=== PATIENT | female | born 1960 | race Caucasian/White ===

== ENCOUNTER → 2017-08-16 | Outpatient (CLI) | payer BC ==
--- NOTE | 2017-08-17 09:15 | MM ---
Reason for exam: screening (asymptomatic). Last mammogram was performed 1 year and 1 month ago. History: Patient is postmenopausal. Family history of breast cancer in paternal cousin and breast cancer in paternal aunt. Physical Findings: A clinical breast exam by your physician is recommended on an annual basis and results should be correlated with mammographic findings. MG Screening Mammo w CAD Bilateral CC and MLO view(s) were taken. Prior study comparison: July 26, 2016, bilateral MG screening mammo w CAD. February 26, 2015, bilateral MG screening mammo w CAD. There are scattered fibroglandular densities. There is no discrete abnormality. No significant changes when compared with prior studies. ASSESSMENT: Negative, BI-RAD 1 RECOMMENDATION: Routine screening mammogram of both breasts in 1 year.
== END ==
LOC: RADMAMWWP 08:52
PROVIDERS: ATTEND Obstetrics & Gynecology
DX: Z12.31 Encounter for screening mammogram for malignant neoplasm of breast (principal)

== ENCOUNTER → 2018-09-20 | Outpatient (CLI) | payer BC ==
--- NOTE | 2018-09-21 14:50 | MM ---
Reason for exam: screening (asymptomatic). Last mammogram was performed 1 year and 1 month ago. History: Patient is postmenopausal. Family history of breast cancer in paternal cousin and breast cancer in paternal aunt. Physical Findings: A clinical breast exam by your physician is recommended on an annual basis and results should be correlated with mammographic findings. MG Screening Mammo w CAD Bilateral CC and MLO view(s) were taken. Prior study comparison: August 16, 2017, bilateral MG screening mammo w CAD. July 26, 2016, bilateral MG screening mammo w CAD. There are scattered fibroglandular densities. There is no discrete abnormality. No significant changes when compared with prior studies. ASSESSMENT: Negative, BI-RAD 1 RECOMMENDATION: Routine screening mammogram of both breasts in 1 year.
== END | disposition home or self-care (01) ==
LOC: RADMAMWWP 11:01
PROVIDERS: ATTEND Obstetrics & Gynecology
DX: Z12.31 Encounter for screening mammogram for malignant neoplasm of breast (principal)
CPT/HCPCS: 77067

== ENCOUNTER → 2019-10-25 | Outpatient (CLI) | payer BC ==
--- NOTE | 2019-10-28 09:59 | MM ---
Reason for exam: screening (asymptomatic). Last mammogram was performed 1 year and 1 month ago. History: Patient is postmenopausal. Family history of breast cancer in 2 paternal aunts, breast cancer in aunt, and breast cancer in 2 paternal cousins. Physical Findings: A clinical breast exam by your physician is recommended on an annual basis and results should be correlated with mammographic findings. MG 3D Screening Mammo W/Cad Bilateral CC and MLO view(s) were taken. Prior study comparison: September 20, 2018, bilateral MG screening mammo w CAD. August 16, 2017, bilateral MG screening mammo w CAD. There are scattered fibroglandular densities. There is no discrete abnormality. No significant changes when compared with prior studies. ASSESSMENT: Negative, BI-RAD 1 RECOMMENDATION: Routine screening mammogram of both breasts in 1 year.
== END | disposition home or self-care (01) ==
LOC: RADMAMWWP 08:23
PROVIDERS: ATTEND Obstetrics & Gynecology
DX: Z12.31 Encounter for screening mammogram for malignant neoplasm of breast (principal); Z80.3 Family history of malignant neoplasm of breast
CPT/HCPCS: 77063; 77067

== ENCOUNTER → 2020-08-03 | Outpatient (CLI) | payer BC ==
--- NOTE | 2020-08-03 17:41 | ECHOF ---
Referral Reason:R06.00 Dyspnea MEASUREMENTS -------- HEIGHT: 162.6 cm WEIGHT: 99.8 kg BP: RVIDd: 3.5 cm (< 3.3) IVSd: 1.4 cm (0.6 - 1.1) LVIDd: 3.8 cm (3.9 - 5.3) LVPWd: 1.3 cm (0.6 - 1.1) IVSs: 1.6 cm LVIDs: 2.6 cm LVPWs: 1.7 cm LAESV Index (A-L): 24.46 ml/m Ao Diam: 3.3 cm (2.0 - 3.7) AV Cusp: 1.7 cm (1.5 - 2.6) MV EXCURSION: 14.090 mm (> 18.000) MV EF SLOPE: 110 mm/s (70 - 150) EPSS: 0.2 cm MV E [place]: 0.60 m/s MV DecT: 186 ms MV A [place]: 0.75 m/s MV E/A Ratio: 0.80 RAP: 5.00 mmHg RVSP: 18.78 mmHg FINDINGS -------- This was a technically adequate study. The left ventricular size is normal. There is moderate concentric left ventricular hypertrophy. O verall left ventricular systolic function is low-normal with, an EF between 50 - 55 %. The diastoli c filling pattern is normal for the age of the patient 10.37. The right ventricle is mildly enlarged. Normal LA size by volume 22+/-6 ml/m2. The right atrial size is normal. Interatrial and interventricular septum intact. The aortic valve is trileaflet and appears structurally normal. There is mild aortic valve sclerosi s. Trace amount of aortic regurgitation. There is no evidence of aortic stenosis. No mitral regurgitation. Trace tricuspid regurgitation present. There is no evidence of pulmonary hypertension. The right ventricular systolic pressure, as measured by Doppler, is 18.78mmHg. There is no pulmonic regurgitation present. The aortic root size is normal. IVC Not well visulized. CONCLUSIONS -------- 1. The left ventricular size is normal. 2. There is moderate concentric left ventricular hypertrophy. 3. Overall left ventricular systolic function is low-normal with, an EF between 50 - 55 %. 4. The diastolic filling pattern is normal for the age of the patient 10.37 5. The right ventricle is mildly enlarged. 6. There is mild aortic valve sclerosis. 7. Trace amount of aortic regurgitation. 8. Trace tricuspid regurgitation present. VALIDATION SPECIALIST: Meghana Dalton RDCS
== END | disposition home or self-care (01) ==
LOC: RADECHMAIN 13:46
DX: I06.9 Rheumatic aortic valve disease, unspecified (principal)
CPT/HCPCS: 93306

== ENCOUNTER → 2021-01-06 | Outpatient (CLI) | payer BC ==
--- NOTE | 2021-01-08 11:45 | MM ---
Reason for exam: screening (asymptomatic). Last mammogram was performed 1 year and 2 months ago. History: Patient is postmenopausal. Family history of breast cancer in 2 paternal aunts, breast cancer in aunt, and breast cancer in 2 paternal cousins. Physical Findings: A clinical breast exam by your physician is recommended on an annual basis and results should be correlated with mammographic findings. MG 3D Screening Mammo W/Cad Bilateral CC and MLO view(s) were taken. Prior study comparison: October 25, 2019, bilateral MG 3d screening mammo w/cad. September 20, 2018, bilateral MG screening mammo w CAD. There are scattered fibroglandular densities. There is chronic nodularity in the right breast. No significant changes when compared with prior studies. ASSESSMENT: Negative, BI-RAD 1 RECOMMENDATION: Routine screening mammogram of both breasts in 1 year.
== END ==
LOC: RADMAMWWP 08:51
PROVIDERS: ATTEND Obstetrics & Gynecology
DX: Z12.31 Encounter for screening mammogram for malignant neoplasm of breast (principal); Z78.0 Asymptomatic menopausal state; Z80.3 Family history of malignant neoplasm of breast
CPT/HCPCS: 77063; 77067

== ENCOUNTER → 2022-01-07 | Outpatient (CLI) | payer BC ==
--- NOTE | 2022-01-10 08:26 | MM ---
Reason for exam: screening (asymptomatic). Last mammogram was performed 1 year ago. History: Patient is postmenopausal. Family history of breast cancer in 2 paternal aunts, breast cancer in aunt, and breast cancer in 2 paternal cousins. Physical Findings: A clinical breast exam by your physician is recommended on an annual basis and results should be correlated with mammographic findings. MG Screening Mammo w CAD Bilateral CC and MLO view(s) were taken. Prior study comparison: January 06, 2021, bilateral MG 3d screening mammo w/cad. October 25, 2019, bilateral MG 3d screening mammo w/cad. There are scattered fibroglandular densities. There is no discrete abnormality. No significant changes when compared with prior studies. ASSESSMENT: Negative, BI-RAD 1 RECOMMENDATION: Routine screening mammogram of both breasts in 1 year.
== END | disposition home or self-care (01) ==
LOC: RADMAMWWP 08:50
PROVIDERS: ATTEND Obstetrics & Gynecology
DX: Z12.31 Encounter for screening mammogram for malignant neoplasm of breast (principal); Z78.0 Asymptomatic menopausal state; Z80.3 Family history of malignant neoplasm of breast
CPT/HCPCS: 77067

== ENCOUNTER 2022-04-03 18:50 | Emergency (ER) | payer BC ==
[2022-04-03 19:36] VITALS: BP 182/102; PULSE 98; RESP 18; TEMP 99.2
[2022-04-03] MEDS ORDERED: ACETAMINOPHEN TAB 500 MG TAB PO STA (21:48)
--- NOTE | 2022-04-03 21:50 | ED ---
General Adult HPI - General Chief complaint: Upper Respiratory Infection Stated complaint: Congestion/SOB Time Seen by Provider: 04/03/22 21:21 Source: patient, RN notes reviewed Mode of arrival: ambulatory Limitations: no limitations - History of Present Illness Initial comments: 61-year-old female presents to the emergency Department with complaints of cough and body aches along with close contact Covid exposure. Patient states she was tested on Monday but did not receive her results. States she is diabetic and is requesting a monoclonal antibody infusion. Patient states her symptoms have progressed since onset and she feels short of breath with exertional activity. Denies fever, chills, chest pain, abdominal pain, nausea, vomiting, diarrhea, or dysuria. - Related Data Home Medications Medication Instructions Recorded Confirmed Atorvastatin [Lipitor] 40 mg PO HS 05/07/16 05/07/16 Calcium Carbonate/Vitamin D3 1 each PO DAILY 05/07/16 05/07/16 [Caltrate 600 Plus D3 Tablet] Dapagliflozin/Metformin HCl 1 each PO DAILY 05/07/16 05/07/16 [Xigduo Xr 10 mg-1,000 mg Tab] Docusate Calcium 240 mg PO DAILY 05/07/16 05/07/16 Levothyroxine Sodium [Levoxyl] 125 mcg PO DAILY 05/07/16 05/07/16 Metoprolol Succinate (ER) [Toprol 25 mg PO DAILY 05/07/16 05/07/16 Xl] Thiamine [Vitamin B-1] 100 mg PO DAILY 05/07/16 05/07/16 Previous Rx's Medication Instructions Recorded Meclizine [Antivert] 25 mg PO TID #20 tab 05/07/16 Allergies Allergy/AdvReac Type Severity Reaction Status Date / Time codeine AdvReac Vomiting Verified 05/07/16 07:26 Review of Systems ROS Statement: Those systems with pertinent positive or pertinent negative responses have been documented in the HPI. ROS Other: All systems not noted in ROS Statement are negative. Past Medical History Past Medical History: Diabetes Mellitus, Hyperlipidemia, Hypertension, Thyroid Disorder History of Any Multi-Drug Resistant Organisms: None Reported Past Surgical History: Hysterectomy Past Psychological History: Depression Smoking Status: Never smoker Past Alcohol Use History: None Reported Past Drug Use History: None Reported General Exam Limitations: no limitations General appearance: alert, in no apparent distress Eye exam: Present: normal appearance. Absent: scleral icterus, conjunctival injection ENT exam: Present: normal exam, normal oropharynx, mucous membranes moist Neck exam: Present: normal inspection. Absent: lymphadenopathy Respiratory exam: Present: normal lung sounds bilaterally. Absent: respiratory distress, wheezes, rales, rhonchi, stridor Cardiovascular Exam: Present: regular rate, normal rhythm, normal heart sounds. Absent: systolic murmur, diastolic murmur, rubs, gallop, clicks GI/Abdominal exam: Present: soft, normal bowel sounds. Absent: distended, tenderness, guarding, rebound, rigid Neurological exam: Present: alert, oriented X3, CN II-XII intact Psychiatric exam: Present: flat affect Skin exam: Present: warm, dry, intact, normal color. Absent: rash Course Vital Signs 04/03/22 19:33 Temperature 99.2 F Pulse Rate 98 Respiratory 18 Rate Blood Pressure 182/102 O2 Sat by Pulse 94 L Oximetry - Reevaluation(s) Reevaluation #1: 04/03/22 23:36 Upon reassessment, patient is resting comfortably. Vital signs have improved. Updated on negative chest x-ray and positive Covid. Discussed monoclonal antibody infusion and patient is agreeable. She will be discharged home timeframe for monitoring if there are no adverse side effects. Medical Decision Making - Medical Decision Making This is a 61-year-old female with a past medical history of hypertension, hyperlipidemia, and type 2 diabetes. Patient presents to the emergency department requesting the monoclonal antibody infusion. States her entire household tested positive for Covid, though she has not her symptoms yet. Patient does have a mild headache, body aches, and cough. Physical exam findings are unremarkable. Chest x-ray is negative. Covid test is positive. Patient was given monoclonal antibody infusion after discussing risks and benefits. She is not experiencing fever or hypoxia. She is discharged home and instructed to follow up with her PCP for a recheck as needed. Return parameters were discussed in detail. Patient verbalizes understanding and agrees with this plan. Attending: Gail. - Lab Data Lab Results 04/03/22 Range/Units 21:47 Coronavirus (PCR) Detected A (Not Detectd) - Radiology Data Radiology results: report reviewed, image reviewed Two-view chest x-ray was obtained. Report was reviewed in its entirety. Impression per Dr. Pritchett is no active cardiopulmonary disease. Normal heart. No change. Disposition Clinical Impression: COVID-19 Disposition: HOME SELF-CARE Condition: Stable Instructions (If sedation given, give patient instructions): COVID-19 (Coronavirus Disease 2019) (ED) Additional Instructions: Treat fever and body aches by alternating Tylenol and Motrin as needed. Increase her intake of fluids. Consider electrolyte solution such as Gatorade, Powerade, or Pedialyte. Vitamin C, vitamin D, and zinc have been shown to be helpful. A steroid was not prescribed as it can cause issues with your blood sugar. Your chest Xray was clear therefore an inhaler is not necessary. Continue to isolate in your house for the next 3 days, then wear a mask for the next 5 days when out in public. Follow-up with your PCP for a recheck via telephone or video visit if needed. Return to the emergency department with any new, worsening, or concerning symptoms. Is patient prescribed a controlled substance at d/c from ED?: No Referrals: Santo Messina MD [Primary Care Provider] - 1-2 days
--- NOTE | 2022-04-03 22:39 | XR ---
EXAMINATION TYPE: XR chest 2V DATE OF EXAM: 04/03/2022 COMPARISON: 05/07/2016 HISTORY: Cough TECHNIQUE: 2 views FINDINGS: Heart and mediastinum are normal. Lungs are clear. Diaphragm is normal. There are no hilar masses. There is mild spurring in the thoracic spine. IMPRESSION: No active cardiopulmonary disease. Normal heart. No change.
[2022-04-04] MEDS ORDERED: BEBTELOVIMAB (EUA) 175 MG/2 ML VIAL IV ONE
== END 2022-04-04 02:02 | disposition home or self-care (01) ==
LOC: EC 18:50
DX: U07.1 COVID-19 (principal); E11.9 Type 2 diabetes mellitus without complications; I10 Essential (primary) hypertension; E07.9 Disorder of thyroid, unspecified; E78.5 Hyperlipidemia, unspecified; Z88.5 Allergy status to narcotic agent; Z79.899 Other long term (current) drug therapy; Z79.890 Hormone replacement therapy; Z79.84 Long term (current) use of oral hypoglycemic drugs
CPT/HCPCS: 71046; 87635; 99284

== ENCOUNTER → 2023-11-15 | Outpatient (CLI) | payer MEDICARE ==
--- NOTE | 2023-11-15 15:07 | P.SLEEP ---
History of Present Illness DATE: 11/15/2023 CONSULTATION/NEW PATIENT EVALUATION HISTORY OF PRESENT ILLNESS/SLEEP-WAKE EVALUATION: 63-year-old lady had been evaluated in the sleep center for obstructive sleep apnea hypopnea syndrome. Patient has history of obstructive sleep apnea for 20 years. She is using her CPAP equipment every night, and presently she has second CPAP unit. I checked CPAP unit. Range of the pressure from 8-18, average 11.8 cm of water. Usage is 100% of nights, average 9.8 hours per night. Leak is 8 L/m which is in normal range. Apnea hypopnea index is 0.2, which is perfect. SLEEP SCHEDULE: Usually sleep schedule from 9 PM to 8 AM 7 days a week. FALLING ASLEEP: No problems with falling asleep. DURING SLEEP: No snoring on CPAP. Patient may wake up from sleep up to 2 times with nocturia. No history of hypnogogical hallucinations, sleep paralysis, or cataplexy. DURING THE DAY/WAKE STATE: Patient wakes up in the morning refreshed. [place] sleepiness scale is 7, which is normal. Patient may take 1 nap at 1 PM or 6 PM. PAST MEDICAL HISTORY: Hypertension, hyperlipidemia, diabetes mellitus, hypothyroidism. PAST SURGICAL HISTORY: Total hysterectomy. MEDICATIONS: Rubelsus 40 mg once a day, losartanhydrochlorothiazide 62390 milligrams once a day, atorvastatin 40 mg once a day, levothyroxine 125 g once a day, metformin 500 mg once a day. SOCIAL HISTORY: Negative for smoking or using alcohol. FAMILY HISTORY: Pneumonia, cancer. REVIEW OF SYSTEMS: Occasional sleepiness during the day. No fevers. No double vision. No recent chest pain. No shortness of breath. No abdominal pain. No bleeding episodes. No blood in urine. No seizure episodes. PHYSICAL EXAMINATION: GENERAL: A pleasant patient without any distress. VITAL SIGNS: BP 137/84 , HR 92 , RR 12 , weight 168.6 pounds, height 5 foot 2 inches, body mass index 30.7 . HEENT: PERRLA, EOMI. Evaluation of oropharynx showed tongue protrudes midline, low position of soft palate Mallampati 4. NECK: Supple. No JVD. Thyroid is not palpable. 14 inches in circumference. LUNGS: Clear to percussion and to auscultation. Good air exchange. No wheezing or rhonchi. HEART: S1, S2 regular. No murmurs, gallops or rubs. ABDOMEN: Soft and nontender. Bowel sounds are present. No organomegaly appreciated. EXTREMITIES: No clubbing or cyanosis. PROGRAM DIRECTOR SUBSTANCE ABUSE: Awake, alert, and oriented x3. Cranial nerves 2 to 7 intact. There is no fasciculation or atrophy noted. No focal deficits observed. ASSESSMENT: 1. Obstructive sleep apnea hypopnea syndrome for 20 years, low position of soft palate Mallampati 4. Patient continued to use his CPAP equipment every night for the whole night, normal respiration on CPAP. 2. Hypertension. 3. Hyperlipidemia. 4. Hypothyroidism. 5 diabetes mellitus. 6 . Status post total hysterectomy. PLAN: 1. Prescription for all necessary CPAP supplies. 2. We will get results of previous sleep studies. 3. Preferable position during sleep on the side. 4. No driving if patient feels any sleepiness. Patient is aware of civil and criminal liability for unsafe driving. 5. Sleep hygiene with regular sleep time for at least 7.5-8 hours. 6. Watching weight. 7. Follow-up visit in 6 months. Thank you very much for referring this patient for consultation. Sincerely, Mendoza Shah MD, PhD, FAASM. Diplomat of [place] [employer], Sleep Medicine Board by [place] [employer] [place] [employer] 4Th Grade Teacher of [employer] [facility] [place] Past Medical History Past Medical History: Diabetes Mellitus, Hyperlipidemia, Hypertension, Thyroid Disorder History of Any Multi-Drug Resistant Organisms: None Reported Past Surgical History: Hysterectomy Past Psychological History: Depression Smoking Status: Never smoker Past Alcohol Use History: None Reported Past Drug Use History: None Reported Medications and Allergies Home Medications Medication Instructions Recorded Confirmed Type Atorvastatin [Lipitor] 40 mg PO HS 05/07/16 05/07/16 History Calcium Carbonate/Vitamin D3 1 each PO DAILY 05/07/16 05/07/16 History [Caltrate 600 Plus D3 Tablet] Dapagliflozin/Metformin HCl 1 each PO DAILY 05/07/16 05/07/16 History [Xigduo Xr 10 mg-1,000 mg Tab] Docusate Calcium 240 mg PO DAILY 05/07/16 05/07/16 History Levothyroxine Sodium [Levoxyl] 125 mcg PO DAILY 05/07/16 05/07/16 History Meclizine [Antivert] 25 mg PO TID #20 tab 05/07/16 Rx Metoprolol Succinate (ER) [Toprol 25 mg PO DAILY 05/07/16 05/07/16 History Xl] Thiamine [Vitamin B-1] 100 mg PO DAILY 05/07/16 05/07/16 History Allergies Allergy/AdvReac Type Severity Reaction Status Date / Time codeine AdvReac Vomiting Verified 05/07/16 07:26 Sleep Note - Sleep Note Sleep Note: Temperature: Pulse Rate: Respiratory Rate: Blood Pressure: SpO2: Height: Weight: BMI: Neck Circumference:
== END ==
LOC: 3 N SLEEP 14:03
PROVIDERS: ATTEND Internal Medicine
DX: G47.33 Obstructive sleep apnea (adult) (pediatric) (principal); I10 Essential (primary) hypertension; E78.5 Hyperlipidemia, unspecified; E03.9 Hypothyroidism, unspecified; E11.9 Type 2 diabetes mellitus without complications; Z90.710 Acquired absence of both cervix and uterus; Z99.89 Dependence on other enabling machines and devices; Z79.84 Long term (current) use of oral hypoglycemic drugs; Z79.899 Other long term (current) drug therapy; Z79.890 Hormone replacement therapy; Z88.5 Allergy status to narcotic agent
CPT/HCPCS: 99211

== ENCOUNTER → 2024-01-11 | Outpatient (CLI) | payer MEDICARE ==
--- NOTE | 2024-01-11 12:41 | BD ---
EXAMINATION TYPE: Axial Bone Density DATE OF EXAM: 01/11/2024 CLINICAL HISTORY: 63 years old Female. ICD-10 CODE: N95.1 MENOPAUSAL AND FEMALE CLIMA Height: 61 Weight: 156 FRAX RISK QUESTIONS: Alcohol (3 or more units per day): no Family History (Parent hip fracture): no Glucocorticoids (More than 3mos): no History of Fracture in Adulthood: no Secondary Osteoporosis: 1. Type 1 Diabetes: no 2. Hyperthyroidism: no 3. Menopause before 45: yes 4. Malnutrition: no 5. Chronic liver disease: no Rheumatoid Arthritis: no Current Tobacco Use: no RISK FACTORS HISTORY OF: Hip Fracture (Right/Left): no Spine Fracture: no History of Wrist Fracture: no Surgery to Spine/Hip(right/left)/Wrist (right/left): no MEDICATIONS: Thyroid Medications: Levothyroxine How Long: past 20 years Osteoporosis Medications: no EXAM MEASUREMENTS: Bone mineral densitometry was performed using the [employer] System. Bone mineral density as measured about the Lumbar spine is: ----- L1-L4(G/cm2): 1.305 T Score Values are as follows: ----- L1: -0.2 ----- L2: -0.3 ----- L3: 2.1 ----- L4: 1.9 ----- L1-L4: 1.0 Z Score Values are as follows: ----- L1: 1.2 ----- L2: 1.1 ----- L3: 3.5 ----- L4: 3.3 ----- L1-L4: 2.4 Bone mineral density has: increased 11.3 % since study of: 08/06/2008 Bone mineral density about the R hip (g/cm2): 0.923 Bone mineral density about the L hip (g/cm2): 0.967 T Score values are as follows: -----R Neck: -1.6 -----L Neck: -1.7 -----R Total: -0.7 -----L Total: -0.3 Z Score values are as follows: -----R Neck: -0.2 -----L Neck: -0.3 -----R Total: 0.4 -----L Total: 0.8 Bone mineral density has: decreased -7.2 % since study of: 08/06/08 FRAX%s: The graph provided illustrates a 9.4% chance for a major osteoporotic fx and a 1.1% chance fo r the hips probability for fx in 10 years time. IMPRESSION: Normal (Values between +1 and -1 indicate normal bone mass). Consider repeating this study in 5 year s or sooner if there is some new clinical indication. NOTE: T-SCORE=SD OF THE YOUNG ADULT MEAN.
--- NOTE | 2024-01-11 19:26 | MM ---
Reason for Exam: Screening (asymptomatic). Last screening mammogram was performed 12 month(s) ago. Patient History: Menarche at age 10. First Full-Term at age 16. Left ovary removed at age 40. Right ovary removed at age 40. Hysterectomy at age 40. Postmenopausal. Paternal cousin had breast cancer. Paternal cousin had breast cancer. Paternal aunt had breast cancer. Paternal aunt had breast cancer. Maternal aunt had breast cancer. Risk Values: Amber 5 year model risk: 1.2%. NCI Lifetime model risk: 4.6%. Prior Study Comparison: 01/06/2021 Bilateral Screening Mammogram, [facility]. 01/07/2022 Bilateral Screening Mammogram, [facility]. 01/09/2023 Bilateral MG 3D screening mammo w/cad, [facility]. Tissue Density: There are scattered areas of fibroglandular density. Findings: Analyzed By CAD. There is no suspicious group of microcalcifications or new suspicious mass in either breast. Overall Assessment: Negative, BI-RAD 1 Management: Screening Mammogram of both breasts in 1 year. . Patient should continue monthly self-breast exams. A clinical breast exam by your physician is recommended on an annual basis. This exam should not preclude additional follow-up of suspicious palpable abnormalities. Note on Amber scores and lifetime risk: 1. A Amber score greater than 3% is considered moderate risk. If this is the case, consider specialist referral to assess eligibility for a risk reducing agent. 2. If overall lifetime risk for the development of breast cancer is 20% or higher, the patient may qualify for future screening with alternating mammogram and breast MRI. Electronically signed and approved by: Russ Landin M.D. Radiologist
== END | disposition home or self-care (01) ==
LOC: RADBDWWP 06:48
PROVIDERS: ATTEND Obstetrics & Gynecology
DX: Z12.31 Encounter for screening mammogram for malignant neoplasm of breast (principal); N95.1 Menopausal and female climacteric states; M85.89 Other specified disorders of bone density and structure, multiple sites
CPT/HCPCS: 77063; 77067; 77080

== ENCOUNTER 2024-03-08 05:50 | Day surgery (SDC) | payer MEDICARE ==
[~2024-03-08 05:50] MED LIST: LIDOCAINE 1% (10MG/ML) FOR IV START INTRADERMA PRN
[2024-03-08 06:50] LABS: Glucose,Whole Blood 95 mg/dL (70-110)
[2024-03-08] MEDS: LACTATED RINGERS 1,000 ML IV SCH (06:51)
[2024-03-08] MEDS ORDERED: LIDOCAINE 2% (PF) 20 MG/ML 5 ML VIAL ONE (06:58)
[2024-03-08] MEDS ORDERED: PROPOFOL 10 MG/ML 20 ML VIAL IV ONE (06:58)
[2024-03-08 07:26] VITALS: TEMP 98.1
--- NOTE | 2024-03-08 07:39 | P.PCN ---
Date of Procedure: 03/08/24 Procedure(s) Performed: brief history: Patient is a pleasant 63-year-old white female scheduled for an elective upper endoscopy as well as colonoscopy as a part of evaluation of GERD and prior history of colon Procedure performed: Esophagogastroduodenoscopy with biopsy Colonoscopy polypectomy Preoperative diagnosis: GERD History of colon polyps Anesthesia: MAC Procedure: After informed consent was obtained from the patient was brought into the endoscopy unit and IV sedation was administered by anesthesia under continuous monitoring. Initially upper endoscopy was done. The Olympus GF 160 video endoscope was inserted inserted into the mouth and esophagus intubated without any difficulty and was gradually advanced into the stomach and duodenum and carefully examined. The bulb and second part of the duodenum appeared normal. The scope was then withdrawn into the stomach adequately insufflated with air and upon careful examination the antrum mild diffuse gastritis and biopsies were done from this area. Mucosa of the body, cardia and fundus appeared normal. The scope was then withdrawn into the esophagus. Small hiatal hernia noted. The GE junction was located at 40 cm to the incisors. It appeared regular with no erythema erosions or ulcerations. Rest of the esophagus appeared normal. Patient tolerated the procedure well. At this time the patient continued to remain sedation. Initial digital rectal examination was normal. Olympus CF 160 video colonoscope was then inserted into the rectum and gradually advanced to the cecum with moderate to severe difficulty. Careful examination was performed as the scope was gradually being withdrawn. The prep was excellent. The cecum, motor invasion: There was a 5 mm polyp that was removed by cold snare polypectomy. Rest of the ascending colon, transverse colon, descending colon, sigmoid colon and rectum appeared normal. Diverticulosis. Retroflexion was performed in the rectum and no lesions were noted. Patient tolerated the procedure well. Impression: 1. Upper endoscopy revealed mild gastritis and small hiatal hernia 2. Colonoscopy revealed 5 mm ascending colon polyp status post cold snare polypectomy and scattered sigmoid diverticulosis Recommendations: Findings of this examination were discussed with the patient as well as family. She was advised to follow-up with the biopsy results. If the biopsy was adenoma she can have repeat colonoscopy in 5 years.
[2024-03-08 08:11] VITALS: BP 119/75; PULSE 72; RESP 16
== END 2024-03-08 08:30 | disposition home or self-care (01) ==
LOC: ORWHC2ENDO 05:50
PROVIDERS: ATTEND Internal Medicine Gastroenterology
DX: Z12.11 Encounter for screening for malignant neoplasm of colon (principal); K29.50 Unspecified chronic gastritis without bleeding; K21.9 Gastro-esophageal reflux disease without esophagitis; K44.9 Diaphragmatic hernia without obstruction or gangrene; K63.5 Polyp of colon; K57.30 Diverticulosis of large intestine without perforation or abscess without bleeding; I10 Essential (primary) hypertension; E78.5 Hyperlipidemia, unspecified; G47.33 Obstructive sleep apnea (adult) (pediatric); E03.9 Hypothyroidism, unspecified; F32.A Depression, unspecified; Z79.890 Hormone replacement therapy; Z79.899 Other long term (current) drug therapy; Z86.010 Personal history of colon polyps; Z88.5 Allergy status to narcotic agent
CPT/HCPCS: 88305; 45385; 43239; J2704; J2001

== ENCOUNTER → 2024-04-12 | Outpatient (CLI) | payer MEDICARE ==
--- NOTE | 2024-04-22 14:10 | CT ---
EXAMINATION TYPE: CT abdomen wo con CT DLP: 261.70 mGycm, Automated exposure control for dose reduction was used. DATE OF EXAM: 04/12/2024 2:17 PM COMPARISON: CT abdomen pelvis most recent from CLINICAL INDICATION:Female, 63 years old with history of R74.8 ABNORMAL LEVELS OF OTHER SERUM ENZYMES ; HIGH LIPASE LEVEL IN SERUM. NO ORAL NO IV. TECHNIQUE: Axial CT abdomen wo con;Sagittal and coronal reformats were created on a separate worksta tion. Contrast used: mL of , (none if empty) Oral contrast used: without Oral Contrast (none if empty) FINDINGS: LOWER CHEST: Lungs are clear. No pleural effusions. Small to moderate-sized hiatal hernia. ABDOMEN LIVER: Unremarkable GALLBLADDER AND BILE DUCTS: Unremarkable. PANCREAS: Unremarkable. SPLEEN: Unremarkable. ADRENAL GLANDS: A 17 mm right adrenal adenoma seen [place]. Units equal 10. The absence of known diagnosis of cancer or symptoms, this can be considered benign and require no follow-up. A 26 mm lef t adrenal nodule is seen which has density of 10 HU. KIDNEYS AND URETERS: No evidence of hydronephrosis or renal calculus. The ureters are unremarkable. ABDOMEN continued: STOMACH AND BOWEL: Stomach and duodenum are unremarkable. No evidence of bowel obstruction. A normal appendix is identified. PERITONEUM/RETROPERITONEUM: No evidence of pneumoperitoneum or free fluid. VASCULATURE: No evidence of aortic aneurysm. MUSCULOSKELETAL: No acute osseous abnormalities LYMPH NODES: No gross evidence for lymphadenopathy. SOFT TISSUE/ABDOMINAL WALL: Unremarkable IMPRESSION: 1. No acute process appreciated. 2. Small to moderate-sized hiatal hernia. 3. Two adrenal adenomas require no follow-up is otherwise patient does not have known cancer diagnos is. 4. Normal pancreas.
== END | disposition home or self-care (01) ==
LOC: RADCTMAIN 13:58
PROVIDERS: ATTEND Family Medicine
DX: K44.9 Diaphragmatic hernia without obstruction or gangrene (principal); R74.8 Abnormal levels of other serum enzymes
CPT/HCPCS: 74150

== ENCOUNTER → 2024-05-03 | Outpatient (CLI) | payer MEDICARE ==
[2024-05-03 09:16] LABS: Ionized Calcium 5.7 mg/dL (4.5-5.3)
[2024-05-03 17:42] LABS: Calcium 10.7 mg/dL (8.7-10.3)
== END | disposition home or self-care (01) ==
LOC: LABWHC1 08:44
PROVIDERS: ATTEND Nurse Practitioner Adult Health
DX: E83.52 Hypercalcemia (principal); D35.00 Benign neoplasm of unspecified adrenal gland
CPT/HCPCS: 36415; 82310; 82330; 82533; 82627; 83835; 83970

== ENCOUNTER → 2024-05-15 | Outpatient (CLI) | payer MEDICARE ==
[2024-05-15 10:54] VITALS: BP 131/85; PULSE 91; RESP 16; TEMP 98.1
--- NOTE | 2024-05-15 11:29 | P.PROGSL ---
Subjective DATE: 05/15/2024 FOLLOW UP VISIT. Patient with obstructive sleep apnea hypopnea syndrome return to sleep center for follow-up visit. Information from previous visit have been reviewed. Patient is using PAP equipment every night for the whole night, getting PAP supplies in time. The patient does not have significant problems with the mask, PAP unit and humidification. [place] sleepiness scale is 6, which is normal. I checked information from PAP unit. PAP unit pressure 8-18, average 11 cm H2O. Usage is 100% for more then 4 hours, average 9.5 hours per night. Leak is 10 l/m, which is in acceptable range. Apnea Hypopnea Index is 0.2, which is normal. MEDICATIONS: Please see below During physical exam: GENERAL: A pleasant patient without any distress. VITAL SIGNS: Please see below, weight 149.4 pounds, BMI 27.6. HEENT: PERRLA, EOMI.low position of soft palate, Mallapati 4 . NECK: Supple. No JVD. LUNGS: Clear to percussion and to auscultation. Good air exchange. No wheezing or rhonchi. HEART: S1, S2 regular. ABDOMEN: Soft and nontender.[] EXTREMITIES: No clubbing or cyanosis. BLIND EYELETTER: Awake, alert, and oriented x3. No focal deficit. Impressions: 1. Obstructive sleep apnea-hypopnea syndrome. Patient demonstrated great compliance with treatment, benefiting from treatment. 2. Patient lost weight related minimal overweight with more numerous index 27.6. 3. Hypertension. 4. Hyperlipidemia. 5. Hypothyroidism. 6. Status post total hysterectomy. Plan: 1. Continue using PAP equipment every night for the whole night. Motor life expectancy on CPAP unit was exceeded, but machine at the present time works well. If any problems CPAP unit will be replaced. 2. To change air filter at least 1-2 times per month. 3. PAP unit should stay lower then position of the head. 4. Advised patient to remove all remaining water from humidifier canister daily and make it dry after each usage. Refill canister with fresh distilled water before each usage. 5. Sleep hygiene with regular time in bed for at least 8 hours. 6. Precautions related to driving. No driving if feel any sleepiness. 7. I will maintain prescription for PAP supplies including mask, tube, filters. 8. Follow up visit in 6 months or earlier if patient has any problems. 9. Watching weight. Thank you very much for allowing me to participate in the management of your patient. Mendoza Shah MD, PhD, FAASM. Diplomat of [place] [employer], Sleep Medicine Board by [place] [employer] Patent Counsel of [facility] [place] Objective - Vital Signs Vital Signs: Vital Signs Temp 98.1 F 05/15/24 10:53 Pulse 91 05/15/24 10:53 Resp 16 05/15/24 10:53 BP 131/85 05/15/24 10:53 Pulse Ox 98 05/15/24 10:53 FiO2 Intake & Output 05/14/24 05/15/24 05/15/24 18:59 06:59 18:59 Weight 67.585 kg Home Medications: Home Medications Medication Instructions Recorded Confirmed Type Atorvastatin [Lipitor] 40 mg PO HS 05/07/16 03/08/24 History Levothyroxine Sodium [Levoxyl] 125 mcg PO DAILY 05/07/16 05/15/24 History Aspirin 81 mg PO DAILY 03/06/24 05/15/24 History Linaclotide [Linzess] 145 mcg PO Q48H 03/06/24 03/08/24 History Losartan/Hydrochlorothiazide 1 each PO DAILY 03/06/24 05/15/24 History [Losartan-Hctz 100-25 mg Tab] Semaglutide [Rybelsus] 14 mg PO DAILY 03/06/24 05/15/24 History Unk Fish Oil 1 tab PO DAILY 03/06/24 03/08/24 History metFORMIN HCL 500 mg PO DAILY 03/06/24 03/08/24 History Linaclotide [Linzess] 145 mcg PO 05/15/24 History
== END ==
LOC: 3 N SLEEP 10:36
PROVIDERS: ATTEND Internal Medicine
DX: G47.33 Obstructive sleep apnea (adult) (pediatric) (principal); I10 Essential (primary) hypertension; E78.5 Hyperlipidemia, unspecified; E66.3 Overweight; E03.9 Hypothyroidism, unspecified; Z90.710 Acquired absence of both cervix and uterus; Z99.89 Dependence on other enabling machines and devices; Z68.27 Body mass index [BMI] 27.0-27.9, adult; Z79.899 Other long term (current) drug therapy; Z79.890 Hormone replacement therapy; Z88.5 Allergy status to narcotic agent
CPT/HCPCS: 99212

== ENCOUNTER → 2025-01-08 | Outpatient (CLI) | payer MEDICARE ==
[2025-01-08 10:35] VITALS: BP 124/80; PULSE 86; RESP 16; TEMP 98
--- NOTE | 2025-01-08 11:01 | P.PROGSL ---
Subjective DATE: 01/08/2025 FOLLOW UP VISIT. Patient with obstructive sleep apnea hypopnea syndrome return to sleep center for follow-up visit. Information from previous visit have been reviewed. Patient is using PAP equipment every night for the whole night, getting PAP supplies in time. CPAP unit does not stop and noisy. [place] sleepiness scale is 9, which is borderline. I checked information from PAP unit. Motor life expectancy was exceeded PAP unit pressure 8-18, average 11.8 cm H2O. Usage is 100% for more then 4 hours, average 9.3 hours per night. Leak is 2 l/m, which is in normal range. Apnea Hypopnea Index is 0.2, which is perfect. MEDICATIONS have been reviewed, please see below. During physical exam: GENERAL: A pleasant patient without any distress. VITAL SIGNS: Please see below, weight is 158 lbs. HEENT: PERRLA, EOMI.low position of soft palate, Mallapati 4 . NECK: Supple. No JVD. LUNGS: Clear to percussion and to auscultation. Good air exchange. No wheezing or rhonchi. HEART: S1, S2 regular. ABDOMEN: Soft and nontender.[] EXTREMITIES: No clubbing or cyanosis. GEODETIC SURVEYOR: Awake, alert, and oriented x3. No focal deficit. Impressions: 1. Obstructive sleep apnea-hypopnea syndrome. Patient demonstrated great compliance with treatment, benefiting from treatment. CPAP unit is old, motor life expectancy was exceeded, noisy, does not stop. 2. Hypertension. 3. Hyperlipidemia. 4. Hypothyroidism. 5. Status post total hysterectomy. Plan: 1. Continue using PAP equipment every night for the whole night. Prescription to replace CPAP unit. 2. Sleep hygiene with regular time in bed for at least 7.5-8 hours 3. PAP unit should stay lower then position of the head. 4. Advised patient to remove all remaining water from humidifier canister daily and make it dry after each usage. Refill canister with fresh distilled water before each usage. 5. Watching weight. 6. Precautions related to driving. No driving if feel any sleepiness. 7. I will maintain prescription for PAP supplies including mask, tube, filters. 8. Follow up visit in 1-3 months or earlier if patient has any problems to check clinical response on treatment with new CPAP unit, compliance with treatment and [place] adjustments related to mask fitting pressure and humidification. Thank you very much for allowing me to participate in the management of your patient. Mendoza Shah MD, PhD, FAASM. Diplomat of [place] [employer] Sleep Medicine, Sleep Medicine Board by [place] [employer] of Internal Medicine Copy Reader of [facility] [place] Objective - Vital Signs Vital Signs: Vital Signs Temp 98 F 01/08/25 10:33 Pulse 86 01/08/25 10:33 Resp 16 01/08/25 10:33 BP 124/80 01/08/25 10:33 Pulse Ox 97 01/08/25 10:33 FiO2 Intake & Output 01/07/25 01/08/25 01/08/25 18:59 06:59 18:59 Weight 71.668 kg Home Medications: Home Medications Medication Instructions Recorded Confirmed Type Atorvastatin [Lipitor] 40 mg PO HS 05/07/16 03/08/24 History Levothyroxine Sodium [Levoxyl] 125 mcg PO DAILY 05/07/16 01/08/25 History Aspirin 81 mg PO DAILY 03/06/24 01/08/25 History Linaclotide [Linzess] 145 mcg PO Q48H 03/06/24 01/08/25 History Losartan/Hydrochlorothiazide 1 each PO DAILY 03/06/24 01/08/25 History [Losartan-Hctz 100-25 mg Tab] Semaglutide [Rybelsus] 14 mg PO DAILY 03/06/24 05/15/24 History Unk Fish Oil 1 tab PO DAILY 03/06/24 03/08/24 History metFORMIN HCL 500 mg PO DAILY 03/06/24 03/08/24 History Linaclotide [Linzess] 145 mcg PO 05/15/24 History Tirzepatide [Mounjaro] 5 mg SQ WEEKLY 01/08/25 01/08/25 History
== END ==
LOC: 3 N SLEEP 10:16
PROVIDERS: ATTEND Internal Medicine
DX: G47.33 Obstructive sleep apnea (adult) (pediatric) (principal); I10 Essential (primary) hypertension; E78.5 Hyperlipidemia, unspecified; E03.9 Hypothyroidism, unspecified; Z99.89 Dependence on other enabling machines and devices; Z90.710 Acquired absence of both cervix and uterus; Z88.5 Allergy status to narcotic agent
CPT/HCPCS: 99212

== ENCOUNTER → 2025-02-19 | Outpatient (CLI) | payer MEDICARE ==
--- NOTE | 2025-02-19 08:57 | MM ---
Reason for Exam: Screening (asymptomatic). Last mammogram was performed 1 year(s) and 1 month(s) ago. Patient History: Menarche at age 10. First Full-Term at age 16. Left ovary removed at age 40. Right ovary removed at age 40. Hysterectomy at age 40. Postmenopausal. Paternal cousin had breast cancer. Paternal cousin had breast cancer. Paternal aunt had breast cancer. Paternal aunt had breast cancer. Maternal aunt had breast cancer. Risk Values: Amber 5 year model risk: 1.2%. NCI Lifetime model risk: 4.4%. Prior Study Comparison: 01/07/2022 Bilateral Screening Mammogram, [facility]. 01/09/2023 Bilateral MG 3D screening mammo w/cad, [facility]. 01/11/2024 Bilateral MG 3D screening mammo w/cad, [facility]. Tissue Density: There are scattered areas of fibroglandular density. Findings: Analyzed By CAD. There is no suspicious group of microcalcifications or new suspicious mass in either breast. Overall Assessment: Benign, BI-RAD 2 Management: Screening Mammogram of both breasts in 1 year. . Patient should continue monthly self-breast exams. A clinical breast exam by your physician is recommended on an annual basis. This exam should not preclude additional follow-up of suspicious palpable abnormalities. Note on Amber scores and lifetime risk: 1. A Amber score greater than 3% is considered moderate risk. If this is the case, consider specialist referral to assess eligibility for a risk reducing agent. 2. If overall lifetime risk for the development of breast cancer is 20% or higher, the patient may qualify for future screening with alternating mammogram and breast MRI. [facility], , 02/19/2025 8:54 AM. Electronically signed and approved by: Freddy Mcclure M.D. Radiologis
== END | disposition home or self-care (01) ==
LOC: RADMAMWWP 08:30
PROVIDERS: ATTEND Family Medicine
DX: Z12.31 Encounter for screening mammogram for malignant neoplasm of breast (principal); R92.323 Mammographic fibroglandular density, bilateral breasts; Z78.0 Asymptomatic menopausal state; Z80.3 Family history of malignant neoplasm of breast
CPT/HCPCS: 77063; 77067

== ENCOUNTER → 2025-03-20 | Outpatient (CLI) | payer MEDICARE ==
[2025-03-20 13:14] VITALS: BP 134/81; PULSE 72; RESP 16; TEMP 98.1
--- NOTE | 2025-03-20 13:55 | P.PROGSL ---
Subjective DATE: 03/20/2025 FOLLOW UP VISIT. Patient with obstructive sleep apnea hypopnea syndrome return to sleep center for follow-up visit. This is first visit after patient received new CPAP unit. Information from previous visit have been reviewed. Patient is using PAP equipment every night for the whole night, getting PAP supplies in time. The patient does not have significant problems with the mask, PAP unit and humidification. [place] sleepiness scale is 4. I checked information from PAP unit. PAP unit pressure 8-14, average 10.9 cm H2O. Usage is 100% for more then 4 hours, average 9 hours per night. Leak is slightly increased to 34.6 l/m. Apnea Hypopnea Index is 0.2, which is normal. MEDICATIONS have been reviewed, please see below. During physical exam: GENERAL: A pleasant patient without any distress. VITAL SIGNS: Please see below, weight is 156.2 lbs. HEENT: PERRLA, EOMI.low position of soft palate, Mallapati 4 . NECK: Supple. No JVD. LUNGS: Clear to percussion and to auscultation. Good air exchange. No wheezing or rhonchi. HEART: S1, S2 regular. ABDOMEN: Soft and nontender.[] EXTREMITIES: No clubbing or cyanosis. HOTEL CONTROLLER: Awake, alert, and oriented x3. No focal deficit. Impressions: 1. Obstructive sleep apnea-hypopnea syndrome. Patient demonstrated great compliance with treatment, benefiting from treatment. 2. Hypertension. 3. Hyperlipidemia. 4. Hypothyroidism. 5. Status post total hysterectomy. Plan: 1. Continue using PAP equipment every night for the whole night. 2. Sleep hygiene with regular time in bed for at least 7.5-8 hours 3. PAP unit should stay lower then position of the head. 4. Advised patient to remove all remaining water from humidifier canister daily and make it dry after each usage. Refill canister with fresh distilled water before each usage. 5. Watching weight. 6. Precautions related to driving. No driving if feel any sleepiness. 7. I will maintain prescription for PAP supplies including mask, tube, filters. 8. Follow up visit in 8 months or earlier if patient has any problems. Thank you very much for allowing me to participate in the management of your patient. Mendoza Shah MD, PhD, FAASM. Diplomat of [place] [employer], Sleep Medicine Board by [place] [employer] Room Service Waiter/Waitress of [facility] [place] Objective - Vital Signs Vital Signs: Vital Signs Temp 98.1 F 03/20/25 13:14 Pulse 72 03/20/25 13:14 Resp 16 03/20/25 13:14 BP 134/81 03/20/25 13:14 Pulse Ox 97 03/20/25 13:14 FiO2 Home Medications: Home Medications Medication Instructions Recorded Confirmed Type Atorvastatin [Lipitor] 40 mg PO HS 05/07/16 03/08/24 History Levothyroxine Sodium [Levoxyl] 125 mcg PO DAILY 05/07/16 01/08/25 History Aspirin 81 mg PO DAILY 03/06/24 01/08/25 History Linaclotide [Linzess] 145 mcg PO Q48H 03/06/24 01/08/25 History Losartan/Hydrochlorothiazide 1 each PO DAILY 03/06/24 01/08/25 History [Losartan-Hctz 100-25 mg Tab] Semaglutide [Rybelsus] 14 mg PO DAILY 03/06/24 05/15/24 History Unk Fish Oil 1 tab PO DAILY 03/06/24 03/08/24 History metFORMIN HCL 500 mg PO DAILY 03/06/24 03/08/24 History Linaclotide [Linzess] 145 mcg PO 05/15/24 History Tirzepatide [Mounjaro] 5 mg SQ WEEKLY 01/08/25 01/08/25 History
== END ==
LOC: 3 N SLEEP 13:01
PROVIDERS: ATTEND Internal Medicine
DX: G47.33 Obstructive sleep apnea (adult) (pediatric) (principal); I10 Essential (primary) hypertension; E78.5 Hyperlipidemia, unspecified; E03.9 Hypothyroidism, unspecified; Z90.710 Acquired absence of both cervix and uterus; Z88.5 Allergy status to narcotic agent
CPT/HCPCS: 99212